=== PATIENT | male | born 2000 | race Caucasian/White ===

== ENCOUNTER 2020-07-31 09:49 | Emergency (ER) | payer OTHER ==
[~2020-07-31] VITALS: Ht 175.3 cm; Wt 69.5 kg
[2020-07-31 10:54] VITALS: BP 126/82
== END 2020-07-31 11:15 | disposition home or self-care (01) ==
LOC: EMS 09:49
DX: R05 Cough (principal); Z11.1 Encounter for screening for respiratory tuberculosis
CPT/HCPCS: 71045-TC

== ENCOUNTER 2020-08-01 11:41 | Inpatient (IN) | payer MEDICAID, OTHER ==
[~2020-08-01] VITALS: Ht 177.8 cm; Wt 82.3 kg
[2020-08-01] MEDS ORDERED: ACETAMINOPHEN 325 MG TABLET PO PRN (13:15)
[2020-08-01] MEDS ORDERED: MAGNESIUM HYDROXIDE SUSPENSION 30 ML UDCUP PO PRN (13:15)
[2020-08-01] MEDS: FAMOTIDINE 20 MG TABLET PO SCH (14:28)
[2020-08-01 21:32] VITALS: BP 118/83
[2020-08-02 04:19] VITALS: BP 112/54
[2020-08-02 08:02] VITALS: BP 123/57
[2020-08-02] MEDS: FAMOTIDINE 20 MG TABLET PO SCH (08:34)
[2020-08-02 16:12] VITALS: BP 120/63
[2020-08-02 19:00] VITALS: BP 110/63
[2020-08-02 21:43] LABS: COVID AG,FIA SOURCE NASOPHARYNGEAL
[2020-08-03 07:40] VITALS: BP 129/76
[2020-08-03 08:07] LABS: HIV 1-2 SCREEN 4TH GEN W/RFLX Non Reactive (Non Reactive)
[2020-08-03] MEDS: FAMOTIDINE 20 MG TABLET PO SCH (09:24)
[2020-08-03 20:25] VITALS: BP 109/53
[2020-08-04 04:30] VITALS: BP 111/85
[2020-08-04 08:22] VITALS: BP 113/53
[2020-08-04] MEDS: FAMOTIDINE 20 MG TABLET PO SCH (08:36)
[2020-08-04 18:04] LABS: QUANTIFERON, TB GOLD PLUS Negative (Negative)
[2020-08-04 20:40] VITALS: BP 128/58
[2020-08-05 07:49] VITALS: BP 100/50
[2020-08-05] MEDS: FAMOTIDINE 20 MG TABLET PO SCH (08:13)
[2020-08-05 16:04] VITALS: BP 136/71
[2020-08-05 19:00] VITALS: BP 95/52
[2020-08-06 04:53] VITALS: BP 99/66
[2020-08-06 08:01] VITALS: BP 109/59
[2020-08-06] MEDS ORDERED: SODIUM CHLORIDE 3% 15 ML NEB SOLUTION NEB ONE (09:05)
[2020-08-06] MEDS: FAMOTIDINE 20 MG TABLET PO SCH (09:18)
[2020-08-06 19:00] VITALS: BP 124/72
[2020-08-07] MEDS: FAMOTIDINE 20 MG TABLET PO SCH ×2 (08:20→08:22)
[2020-08-07 08:26] VITALS: BP 97/66
[2020-08-07 19:58] VITALS: BP 98/54
[2020-08-07 23:12] VITALS: BP 90/57
[2020-08-08 04:40] VITALS: BP 112/81
[2020-08-08] MEDS: FAMOTIDINE 20 MG TABLET PO SCH (08:41)
[2020-08-08 08:56] VITALS: BP 120/75
== END 2020-08-08 18:30 | DRG 179 ==
LOC: EMS 11:45 → 6N 13:07 → 6S 21:07
PROVIDERS: ADMIT Internal Medicine; ATTEND Internal Medicine
DX: A15.9 Respiratory tuberculosis unspecified (principal); Z20.828 Contact with and (suspected) exposure to other viral communicable diseases; F17.210 Nicotine dependence, cigarettes, uncomplicated; Z78.9 Other specified health status
CPT/HCPCS: 86157; 86480; 87015; 87206; 87389; 87426; 87556; 87798; 36415-L1; 36415-TC